=== PATIENT | male | born 1980 | race Two or more races ===

== ENCOUNTER 2022-03-28 17:15 | Emergency (ER) | payer OTHER, SELFPAY ==
[2022-03-28 17:16] VITALS: BP 112/76; PULSE 59; RESP 18; TEMP 36.8; O2SAT 99; BMI 27.4
--- NOTE | 2022-03-28 18:10 | CT_ITS ---
STUDY: CT ABDOMEN AND PELVIS WITH CONTRAST REASON FOR EXAM: Male, 41 years old. abd pain, GI bleed - RADIATION DOSAGE (If Supplied By Facility): CTDIvol = ( 15.12 ) mGy, DLP = ( 751.85 ) mGycm TECHNIQUE: Transaxial images were obtained from the dome of the diaphragm to the symphysis pubis with oral contrast. [address] 300 was administered. Sagittal and coronal images were reconstructed. Individualized dose optimization techniques were used for this CT. COMPARISON: None. FINDINGS: The visualized lung bases are unremarkable. The visualized portions of the heart are within normal limits. Normal liver. Normal gallbladder and extrahepatic biliary system. Normal spleen. Normal pancreas. Normal bilateral adrenal glands. Normal right kidney. Normal left kidney. Normal visualized stomach. No dilated loops of small bowel. Evaluation for active GI bleed interpreted by positive density luminal contrast. Normal colon. The appendix is visualized and appears normal. Normal abdominal aorta. Normal inferior vena cava. Normal retroperitoneum. Normal urinary bladder. Normal abdominal wall. Bilateral L5 spondylolysis with minimal grade [address]/Abdomen/Pelvis WITH Contrast IMPRESSION: 1. No acute inflammatory process or bowel obstruction. Electronically Signed: Jabier Knight MD (Brooks) at 20:25 EDT Reading Location ID and State: [facility] / [place] , Service support ,
--- NOTE | 2022-03-28 18:13 | EDS_ITS ---
HPI History of Present Illness Chief Complaint: Abd Pain Informant: patient Onset/Context/Timing Onset: Today Current Severity: Mild Maximum Severity: Moderate Narrative Narrative: Patient presents secondary to abdominal and back pain. He states he was awoken from sleep at 3 AM this morning with pain around the umbilicus. It seemed to go straight through to his back. He had dark stool this morning followed by diarrhea. He does report some blood in the toilet water and when he was wiping. He denies history of hemorrhoids. No rectal pain. PFSH PFSH Medical History no medical history no medical history Home Medications multivitamin 1 tab PO DAILY 03/28/22 [History Last Taken Unknown] omeprazole 40 mg capsule,delayed release 40 mg PO DAILY 4 weeks #28 caps 03/28/22 [Rx Last Taken Unknown] Allergy/AdvReac Type Severity Reaction Status Date / Time Penicillins [PCN] Allergy PT UNSURE Verified 03/28/22 17:46 OF REACTION Surgical History no surgical history no surgical history Social History Smoking Status: Never smoker ROS ROS ED Constitutional Constitutional ED: Denies chills or fever(s) Eyes Eyes: Denies change in vision or discharge from eye(s) ENT ENT ED: Denies discharge from eye(s), rhinorrhea or sore throat Cardiovascular Cardiovascular: Denies chest pain or palpitations Respiratory/Chest Respiratory/Chest: Denies cough or dyspnea Gastrointestinal Gastrointestinal: Reports abdominal pain and diarrhea; Denies nausea or vomiting Genitourinary Genitourinary ED: Denies difficulty urinating or dysuria Musculoskeletal Musculoskeletal: Reports back pain; Denies extremity pain Integumentary Denies Abrasions or rash Neurologic Neurologic: Denies headache(s) or weakness Allergic/Immunologic Allergic/Immunologic ED: Denies lip swelling or urticaria EXAM Physical Exam Const Vital Signs: 03/28/22 17:16 03/28/22 19:22 Temperature 98.2 F Temperature Source Temporal Pulse Rate 59 L Respiratory Rate 18 16 Blood Pressure 112/76 Blood Pressure Mean 88 Pulse Ox 99 Oxygen Delivery Method Room Air Positive well nourished and well developed General Appearance ED: well developed HEENT Reports moist mucous membranes Eyes PERRL and EOMs intact bilaterally Neck no lymphadenopathy Chest Wall inspection of chest normal and palpation of chest normal Resp normal respiratory effort and clear to auscultation bilaterally Cardio regular rate and regular rhythm GI normal to inspection, nondistended, normoactive bowel sounds and non-tender Back/Spine no CVA tenderness Extremity normal to inspection Neuro oriented x3, CN's II-XII intact bilaterally and no sensory deficits noted Motor Exam: strength 5/5 throughout Psych mental status grossly normal Skin no rashes or lesions noted MDM MDM MDM Narrative Medical decision making narrative: Patient declined anything for pain at this time. He is given IV fluids. Lab work obtained along with a CT scan of the abdomen pelvis. Lab Data Attestation: I reviewed the patient's lab results. Labs: Laboratory Results - last 24 hr 03/28/22 03/28/22 03/28/22 18:38 18:38 18:38 WBC 6.5 RBC 5.11 Hgb 15.4 Hct 47.2 MCV 92.4 MCH 30.1 MCHC 32.6 RDW Std Deviation 42.6 RDW Coeff of Julieta 12.4 Plt Count 196 MPV 10.6 Immature Gran % (Auto) 0.300 Neut % (Auto) 63.2 Lymph % (Auto) 25.8 Spink % (Auto) 8.6 Eos % (Auto) 1.5 Baso % (Auto) 0.6 Absolute Neuts (auto) 4.1 Absolute Lymphs (auto) 1.68 Nucleated RBC % 0 PT 13.1 INR 1.0 APTT 31.7 Sodium 141 Potassium 4.1 Chloride 107 Carbon Dioxide 29.0 Anion Gap 5 BUN 17 Creatinine 1.18 Estim Creat Clear Calc 75.85 Est GFR (MDRD) Af Amer 88 Est GFR (MDRD) Non-Af 73 BUN/Creatinine Ratio 14.4 Glucose 103 Calcium 9.3 Total Bilirubin 0.70 Direct Bilirubin 0.17 AST 13 L ALT 28 Alkaline Phosphatase 40 L Total Protein 7.4 Albumin 4.3 Globulin 3.1 Lipase 80 Radiography Diagnostic Testing: Clinical Impression(s) from Imaging Studies Abdomen/Pelvis CT 03/28/22 18:10 IMPRESSION: 1. No acute inflammatory process or bowel obstruction. Electronically Signed: Jabier Knight MD (Brooks) at 20:25 EDT Reading Location ID and State: [facility] / [place] , Service support , Treatment and Re-Evaluation Narrative: Patient's lab work is unremarkable with a normal white count and differential. Hemoglobin is 15.4. Coags are normal. Chemistry studies did not reveal a significant elevation in BUN. LFTs are unremarkable. CT scan with contrast reveals no acute findings. Test results are discussed with the patient. I advised him at this time I do not see an obvious source of his reported bleeding. In light of the fact that he had dark stools this morning and tenderness more in the periumbilical region I do have concern for possible ulcer. He will be treated with a course of Prilosec. He is referred to GI for follow-up as needed. Return instructions have been discussed. Discharge Plan Triage Chief Complaint: Abd Pain ED Provider: Mary Lou Ruvalcaba Dx/Rx/DC Orders Clinical Impression: GI bleed Instructions: Bleeding Gastrointestinal Prescriptions: New omeprazole 40 mg capsule,delayed release(DR/EC) 40 mg PO DAILY 28 Days Qty: 28 0RF No Action multivitamin Tablet 1 tab PO DAILY Primary Care Provider: Care Physician,No Primary Referrals: Winston Zambrano, DO [STAFF PHYSICIAN] - As Needed Care Physician,No Primary [Primary Care Provider] - Disposition Disposition: Home, Self Care
[2022-03-28 18:44] LABS: Absolute Lymphocyte Count 1.68 X10^3/uL (0.83-4.51); Absolute Neutrophil Count 4.1 X10^3/uL (2.0-7.7); Basophil# 0.04 X10^3/uL; Basophil% 0.6 % (0-1); Eosinophils% 1.5 % (0-5); Hematocrit 47.2 % (40-54); Hemoglobin 15.4 g/dL (13.0-16.5); Lymphocyte # 1.68 X10^3/ul (0.83-4.51); Lymphocyte % 25.8 % (19-41); Mean Corp Hgb Conc 32.6 g/dL (32-36); Mean Corpuscular Hgb 30.1 pg (27.0-32.0); Mean Corpuscular Volume 92.4 fL (80-94); Mean Platelet Vol. 10.6 fl (6.2-12.0); Monocyte# 0.56 X10^3/uL; Monocyte% 8.6 % (0-10); NRBC Flagged by Analyzer 0 % (0-5); Neutrophil % 63.2 % (47-70); Platelet Count 196 K/mm3 (150-450); RBC Distribution Width CV 12.4 % (11.6-14.6); RBC Distribution Width SD 42.6 fl (35.1-43.9); Red Blood Count 5.11 M/mm3 (4.6-6.2); White Blood Count 6.5 K/mm3 (4.4-11.0)
[2022-03-28 18:54] LABS: Prothrombin Time (Protime)PT. 13.1 SECONDS (11.7-14.9)
[2022-03-28 18:55] LABS: Partial Thromboplast Time 31.7 Seconds (24.1-36.2)
[2022-03-28 19:06] LABS: AST(SGOT) 13 U/L (15-37); Alanine Aminotransfer ALT/SGPT 28 U/L (16-61); Albumin, Serum 4.3 g/dL (3.2-5.0); Alkaline Phosphatase 40 U/L (45-117); Anion Gap 5 (5-15); BUN 17 mg/dL (7-18); BUN/Creat Ratio 14.4 RATIO (10-20); Bilirubin, Direct 0.17 mg/dL (0.00-0.30); Calcium,Total 9.3 mg/dL (8.5-10.1); Chloride 107 mmol/L (98-107); Creatinine, Serum 1.18 mg/dL (0.70-1.30); EST Glomerular Filtration Rate 73 mL/min (>60); Est Glom Filt Rate - Afr Amer 88 mL/min (>60); Estimated Creatinine Clearance 75.85 ml/min; Globulin 3.1 g/dL (2.2-4.2); Glucose 103 mg/dL (74-106); Lipase 80 U/L (73-393); Potassium 4.1 mmol/L (3.5-5.1); Protein, Total 7.4 g/dL (6.4-8.2); Sodium Level 141 mmol/L (136-145)
[2022-03-28] MEDS: 0.9% Normal Saline 1,000 ML 150 ML IV (19:10)
[2022-03-28 19:22] VITALS: RESP 16
--- NOTE | 2022-03-28 19:37 | CM.ED ---
Social Work Note Reason for Referral: No PCP SW reviewed chart, NO PCP listed for pt. SW in to speak with pt. Pt confirms he has no PCP and no insurance. Pt states that he paid the ER self deposit. SW provided pt with PCP List and self-pay/financial packet. Bonita Gabriel FLOOR TECH, BOX PRINTER
[2022-03-28] MEDS: Pantoprazole Sodium 40 MG Tablet PO (20:53)
== END 2022-03-28 20:58 | disposition home or self-care (01) ==
PROVIDERS: Emergency Provider Emergency Medicine; Visit Provider Emergency Medicine
DX: K92.2 Gastrointestinal hemorrhage, unspecified (principal)
CPT/HCPCS: 74177; 80048; 80076; 83690; 85025; 85610; 85730; 96360; 96361; 99284; J7030; Q9967; A4216

== ENCOUNTER → 2022-04-21 | Outpatient (CLI) | payer SELFPAY ==
[2022-04-21 13:08] LABS: Erythrocyte Sedimentation Rate 1 mm/hr (0-20)
[2022-04-21 13:24] LABS: Vitamin B12 729 pg/mL (211-911)
[2022-04-21 13:42] LABS: CRP < 2.90 mg/L (0.0-3.0); LDH 127 U/L (87-241); Thyroid Stim Hormone (TSH) 1.16 uIU/mL (0.358-3.74)
[2022-04-23 14:09] LABS: Anti-Centromere B Ab <0.2 AI (0.0-0.9); Anti-Chromatin <0.2 AI (0.0-0.9); Anti-Jo <0.2 AI (0.0-0.9); Anti-Scleroderma-70 AB <0.2 AI (0.0-0.9); RNP Ab 0.4 AI (0.0-0.9); SJOGREN'S Anti-SS-A test < 0.2 AI (0.0-0.9); SJOGREN'S Anti-SS-B test < 0.2 AI (0.0-0.9); Smith Ab <0.2 AI (0.0-0.9)
[2022-04-23 16:09] LABS: Endomysial Antibody IgA Negative (Negative)
[2022-04-24 07:54] LABS: Immunoglobulin A 90 mg/dL (90-386); t-Transglutaminase IgA <2 U/mL (0-3)
[2022-04-24 07:56] LABS: Anti-dsDNA Ab <1 IU/mL (0-9)
[2022-04-26 18:07] LABS: Albumin 4.3 g/dL (2.9-4.4); Alpha-1-Globulins 0.2 g/dL (0.0-0.4); Alpha-2-Globulins 0.6 g/dL (0.4-1.0); Cytoplasmic Ab (C-ANCA) <1:20 titer (Neg:<1:20); Immunoglobulin A 86 mg/dL (90-386); Immunoglobulin E 4 IU/mL (6-495); Immunoglobulin G 975 mg/dL (603-1613); Immunoglobulin M 64 mg/dL (20-172); PROEL- TOTAL PROTEIN 6.9 g/dL (6.0-8.5)
[2022-04-26 18:55] LABS: Perinuclear Ab (P-ANCA) <1:20 titer (Neg:<1:20)
== END | disposition home or self-care (01) ==
PROVIDERS: Referring Provider Internal Medicine Gastroenterology; Visit Provider Internal Medicine Gastroenterology
DX: K92.2 Gastrointestinal hemorrhage, unspecified (principal)
CPT/HCPCS: 36415; 82607; 82746; 82784; 82785; 83516; 83615; 84165; 84443; 85652; 86140; 86225; 86235; 86255; 86256; 86334

== ENCOUNTER → 2022-05-06 | Outpatient (CLI) | payer SELFPAY ==
[2022-05-13 14:28] LABS: Giardia Lamblia, Stool EIA Negative (Negative); Pancreatic Elastase, Fecal 96 (>200)
== END | disposition home or self-care (01) ==
LOC: LABSPEC 11:05
PROVIDERS: Visit Provider Internal Medicine Gastroenterology
DX: K92.2 Gastrointestinal hemorrhage, unspecified (principal); K58.9 Irritable bowel syndrome, unspecified
CPT/HCPCS: 82653; 83630; 87177; 87209; 87329; 87493

== ENCOUNTER 2022-05-07 11:18 | Day surgery (SDC) | payer SELFPAY ==
[2022-05-07 11:41] VITALS: BP 111/64; PULSE 49; RESP 14; TEMP 36.9; O2SAT 100; BMI 25.7
[2022-05-07] MEDS: Lactated Ringers 1,000 ML 15 ML IV (11:50)
--- NOTE | 2022-05-07 11:55 | HP.PCM_ITS ---
History and Physical Date of Admission: 05/07/22 42 M who presents to the office today for Initial consult. Vincent established with this clinic 04.21.22 following [facility] ED presentation 03.28.22 for periumbilical abdominal pain radiating to his back and diarrhea with blood. Biochemical workup and imaging performed without acute findings. Upper GI ulcer suspected and he was discharged with Prilosec.? ? Biochemical workup CBC, CMP, coagulation without pertinent abnormality. LFT AST L13/ALT WNL28/AlkPhos L40.? ? CT abd/pel 03.28.22 for abdominal pain, GIB without acute or chronic abnormalities found.? ? Patient states that since his ER visit he states that he has not had any blood in his stool. He states that his stool has been green in color and the consistency changes. Patient states that the prilosec has not helped. He states that he has changed his diet to avoid acidic foods and this has decreased his symptoms but he still has occasional gas, bloating, abdominal pain, and heartburn. Patient states that he had an episode of the same symptoms a few years ago and this was eliminated with dietary changes. States that he had biochemical workup and a stool test with his last episode years ago but these results were all unremarkable. Denies ever having a EGD or Colonoscopy. Patient states that his mom has Gastritis and he has an aunt that had stomach cancer. ? ROS Const Constitutional: No fatigue, fever(s), frequent falls, headache(s) or weight change ENT ENT: No headache(s) or difficulty swallowing Cardio Cardiology: No leg pain with exertion Gastro GI: Positive for bloating, change in bowel habits, constipation, diarrhea and heartburn; No abdominal pain, difficulty swallowing, Vomiting blood/hematemesis, Blood in stool, nausea/dyspepsia or vomiting Musc Musculoskeletal: Positive for back pain; No abnormal gait, joint pain, joint swelling, muscle cramps, muscle weakness, numbness, stiffness, tingling, Arthritis, sciatica, leg pain at night or leg pain with exertion Skin Skin: No dry skin, lesions, itchy eyes or rash Neuro Neurology: No abnormal gait, dizziness, frequent falls, headache(s), numbness, tingling, tremor(s), Increased tone in limbs, paralysis or seizures Psych Psychiatric: No anxiety, No depression, No paranoia, No Behavioral Problems, No Compulsive Behavior, No hyperactivity, No inattentiveness, No obsessions/compulsions, Positive for Temper Tantrums and No suicidal ideation Endo Endocrine: No fatigue or weight change Aller/Imm Allergy/Immunologic: No itchy eyes Messi/Lymp Hematologic/Lymphatic: No easy bleeding or easy bruising Exam Const General: cooperative and comfortable Nutritional Appearance: average body habitus and well nourished [facility] Head: normal to inspection Ears: hearing grossly normal bilaterally Nose: external nose normal Face and sinus: normal facial exam Mouth: oral mucosae normal Throat: posterior oropharynx normal Eyes General: appearance normal, both eyes and all related structures Neck Neck: normal visual inspection Chest Chest palpation & inspection: normal inspection of the chest and normal palpation of entire chest wall Resp Effort & Inspection: normal respiratory effort Auscultation: Bilateral: Clear to Auscultation Cardio Palpation: normal PMI Rate: regular rate Rhythm: regular rhythm GI Inspection: normal to inspection Auscultation: normal bowel sounds Percussion: normal to percussion Palpation: no hepatosplenomegaly Skin General: no rashes or lesions noted Neuro General: patient alert Extrem General: normal to inspection Psych Affect: normal affect Quality Reporting Tobacco Screening ([facility]) Smoking Status: Never smoker Assessment and Plan Assessment and Plan (1) GI bleed: ?Status:?Acute ?Plan: The differential diagnosis for GI bleed in the setting of weight loss does include peptic ulcer disease, less likely malignancy, H. pylori associated gastritis, less likely inflammatory bowel disease, also less likely angiodysplasia.? He wanted chemical testing and also undergo stool testing.? We will evaluate his upper GI tract for any intraluminal abnormality that can be hopefully diagnosed and therapeutically treated at the same time.? He may also need a capsule endoscopy and/or colonoscopy depending with upper endoscopy shows along with a biochemical work-up and stool testing. ? ? ? Orders: Orders CRP Today K92.2 - Gastrointestinal hemorrhage, unspecified ? Erythrocyte Sed Rate Today K92.2 - Gastrointestinal hemorrhage, unspecified ? ANCA Today K92.2 - Gastrointestinal hemorrhage, unspecified ? Celiac Disease Profile Today K92.2 - Gastrointestinal hemorrhage, unspecified ? Vitamin B12 Today K92.2 - Gastrointestinal hemorrhage, unspecified ? Folates, (Folic Acid) Today K92.2 - Gastrointestinal hemorrhage, unspecified ? LDH Today K92.2 - Gastrointestinal hemorrhage, unspecified ? Thyroid Stim Hormone (TSH) Today K92.2 - Gastrointestinal hemorrhage, unspecified ? BURAK Comprehensive Panel Today K92.2 - Gastrointestinal hemorrhage, unspecified ? Ova and Parasites 8623 Today K58.9 - Irritable bowel syndrome without diarrhea, K92.2 - Gastrointestinal hemorrhage, unspecified ? CDIFF (PCR) Today K92.2 - Gastrointestinal hemorrhage, unspecified, R19.7 - Diarrhea, unspecified ? Stool Lactoferrin/WBC Today K58.9 - Irritable bowel syndrome without diarrhea, K92.2 - Gastrointestinal hemorrhage, unspecified ? Immunoglobulins G/A/M/E Today K92.2 - Gastrointestinal hemorrhage, unspecified ? Giardia Lamblia, Stool EIA Today K92.2 - Gastrointestinal hemorrhage, unspecified ? CHASIDY + Protein Elect, Serum Today K92.2 - Gastrointestinal hemorrhage, unspecified ? Pancreatic Elastase, Fecal Today K92.2 - Gastrointestinal hemorrhage, unspecified ? I have re-examined the patient. There are no clinical changes since date of exam.
--- NOTE | 2022-05-07 12:15 | EGD_PTH ---
PATIENT: SHONNA CID LOC: EN U#:[id number] AGE/SX: 42/M ROOM: RE05/07/[address]: Dr. Winston Zambrano DO : 1980 BED: DIS: 05/07/2022 SPEC #: [id number] RECD: 05/07/22 12:37 STATUS: JEOVANNY REQ #: [id number] ALEXANDRA: 05/07/22 12:[address]: Winston Zambrano DEPT: SURGICAL PATHOLOGY RECD BY: Danni Anna ENTERED: 05/07/22 13:40 SP TYPE: EGD BIOPSY OT DR: Ashely Primary Care Phys Tissues: A - Duodenum, NOS B - Gastric mucous membrane C - Esophagus, NOS Procedures: Special Stain Group II Surgery Specimen Level IV Alcian Blue/PAS (control) HEADER OPERATION: [place] with biopsies PRE-OP DIAGNOSIS: GI bleed TISSUE SUBMITTED: A ? Duodenum biopsy, B ? Gastric body biopsy, C ? Distal esophagus biopsy MICROSCOPIC DIAGNOSIS A. Duodenum, biopsy: A fragment of small intestinal mucosa with mild congestion and hemorrhage. B. Gastric body, biopsy: Minimal gastritis. See microscopic description and comment. C. Distal esophagus, biopsy: Fragments of gastroesophageal mucosa with chronic inflammation. Intestinal metaplasia (goblet cell metaplasia) not identified. See comment. SJ:rickie 05/08/2022 COMMENT B. The results of immunohistochemistry for Helicobacter pylori will be reported separately ([id number]). C. Alcian blue/PAS stain with matched control is used in the evaluation of the specimen. MICROSCOPIC DESCRIPTION Slides are reviewed. B. The specimen shows fragments of gastric mucosa with chronic inflammatory cell infiltrates in the lamina propria consisting of lymphocytes and plasma cells, consistent with minimal chronic gastritis. GROSS DESCRIPTION A - Received in fixative is one container labeled with the patient's name and designated duodenum biopsy. The specimen consists of one irregular fragment of light chapa soft tissue that measures 0.3 x 0.2 x 0.1 cm. The specimen is totally submitted in one cassette. B - Received in fixative is one container labeled with the patient's name and designated gastric body biopsy. The specimen consists of two irregular fragments of light chapa soft tissue that in aggregate measure 0.6 x 0.3 x 0.1 cm. The specimen is totally submitted in one cassette. C - Received in fixative is one container labeled with the patient's name and designated distal esophagus. The specimen consists of multiple irregular fragments of light chapa soft tissue that in aggregate measure 0.8 x 0.5 x 0.1 cm. The specimen is totally submitted in one cassette. / GEOVANNA:rickie 05/07/2022 TC:3 CPT: 29906 x3, 46908
--- NOTE | 2022-05-07 12:15 | IMM_PTH ---
PATIENT: SHONNA CID LOC: EN U#:[id number] AGE/SX: 42/M ROOM: RE05/07/[address]: Dr. Winston Zambrano DO : 1980 BED: DIS: 05/07/2022 SPEC #: [id number] RECD: 05/07/22 13:54 STATUS: JEOVANNY REQ #: [id number] ALEXANDRA: 05/07/22 12:[address]: Winston Zambrano DEPT: IMMUNOHISTOCHEMISTRY RECD BY: Rossana Bach ENTERED: 05/07/22 13:55 SP TYPE: IMMUNO OTHR DR: Ashely Primary Care Phys Tissues: B - Stomach, NOS Procedures: H Pylori (initial) PHYSICIAN & INSTITUTION [place] [id number] SPECIMEN INFORMATION: Tissue Source: B ? Gastric body biopsy Clinical Info: GI bleed Specimen Number: [id number] CPT code: 06894 METHODOLOGY: Deparaffinized sections of prefer/formalin-fixed tissue or PAP/DQ stained slides are incubated with monoclonal/polyclonal antibodies/oligonucleotide probes. Localization is made via biotin free immunoperoxidase method. Appropriate controls are performed and reacted as expected. Results on target cell population are indicated in the following table: RESULTS: ANTIBODY / CLONE RESULT Block B H Pylori (polyclonal) negative These tests were developed and their performance characteristics determined by [facility]. They may not have been cleared or approved by the U.S. Food and Drug Administration. The FDA has determined that such clearance or approval is not necessary. The above immunohistochemical/dualISH markers are ordered and reviewed by the Pathologist. INTERPRETATION: B. Gastric body, biopsy: Negative for Helicobacter pylori organisms. SJ:rickie 05/08/2022
[2022-05-07 12:25] VITALS: BP 101/79; BP 111/64; PULSE 52; RESP 16; TEMP 36.7; O2SAT 97
--- NOTE | 2022-05-07 12:25 | OP.EGD_ITS ---
Patient Name: Vincent Castro Procedure Date: 05/07/2022 11:58 AM Date of : 1980 Age: 42 Procedure: Upper GI endoscopy Indications: Epigastric abdominal pain, Dyspepsia, Heartburn Providers: Winston Zambrano DO Medicines: Monitored Anesthesia Care Patient Profile: This is a 42 year old male. Refer to note in patient chart for documentation of history and physical. Patient has symptoms of acute abdominal cramping and chronic epigastric abdominal pain. Complications: No immediate complications. Procedure: Pre-Anesthesia Assessment: - Prior to the procedure, a History and Physical was performed, and patient medications and allergies were reviewed. The patient is competent. The risks and benefits of the procedure and the sedation options and risks were discussed with the patient. All questions were answered and informed consent was obtained. Patient identification and proposed procedure were verified by the physician in the pre-procedure area. Mental Status Examination: alert and oriented. Airway Examination: normal oropharyngeal airway and neck mobility. Respiratory Examination: clear to auscultation. CV Examination: normal. Prophylactic Antibiotics: The patient does not require prophylactic antibiotics. Prior Anticoagulants: The patient has taken no previous anticoagulant or antiplatelet agents. ASA Grade Assessment: II - A patient with mild systemic disease. After reviewing the risks and benefits, the patient was deemed in satisfactory condition to undergo the procedure. The anesthesia plan was to use moderate sedation / analgesia (conscious sedation). Immediately prior to administration of medications, the patient was re-assessed for adequacy to receive sedatives. The heart rate, respiratory rate, oxygen saturations, blood pressure, adequacy of pulmonary ventilation, and response to care were monitored throughout the procedure. The physical status of the patient was re-assessed after the procedure. After obtaining informed consent, the endoscope was passed under direct vision. Throughout the procedure, the patient's blood pressure, pulse, and oxygen saturations were monitored continuously. The gastroscope was introduced through the mouth, and advanced to the second part of duodenum. The upper GI endoscopy was accomplished without difficulty. The patient tolerated the procedure well. Scope In: 12:14:59 PM Scope Out: 12:18:53 PM Total Procedure Duration Time 0 hours 3 minutes 54 seconds Findings: The Z-line was irregular and was found 39 cm from the incisors. Biopsies were taken with a cold forceps for histology. Verification of patient identification for the specimen was done. Estimated blood loss was minimal. A medium-sized hiatal hernia was present. Scattered mild inflammation characterized by congestion (edema) and erosions was found in the stomach. Biopsies were taken with a cold forceps for histology. Verification of patient identification for the specimen was done. Estimated blood loss was minimal. The second portion of the duodenum was normal. Biopsies were taken with a cold forceps for histology. Impression: - Z-line irregular, 39 cm from the incisors. Biopsied. - Medium-sized hiatal hernia. - Gastritis. Biopsied. - Normal second portion of the duodenum. Biopsied. Recommendation: - Await pathology results. - Repeat upper endoscopy in 1 year for surveillance. - Return to GI clinic. - Continue present medications. Procedure Code(s): --- Professional --- 36317, Esophagogastroduodenoscopy, flexible, transoral; with biopsy, single or multiple CPT copyright 2017 [employer]. All rights reserved. The codes documented in this report are preliminary and upon sole dyer review may be revised to meet current compliance requirements. Winston Zambrano DO 05/07/2022 12:24:57 PM This report has been signed electronically. Number of Addenda: 1 Note Initiated On: 05/07/2022 11:58 AM Addendum Number: 1 Addendum Date: 07/09/2022 6:27:05 AM MAC was used as sedation for this procedure. Winston Zambrano DO 07/09/2022 6:27:09 AM This report has been signed electronically.
--- NOTE | 2022-05-07 12:25 | OP.CCLET_ITS ---
07/09/2022 No Primary Care Physician Re : Upper GI endoscopy procedure for Vincent Castro Dear Care Physician This procedure was performed on May. My impressions and recommendations are as follows: Impressions : - Z-line irregular, 39 cm from the incisors. Biopsied. - Medium-sized hiatal hernia. - Gastritis. Biopsied. - Normal second portion of the duodenum. Biopsied. Recommendations : - Await pathology results. - Repeat upper endoscopy in 1 year for surveillance. - Return to GI clinic. - Continue present medications. My findings are described in the full procedure note, which is enclosed. If I can be of further assistance, please feel free to contact me at . Sincerely, Winston Zambrano, 05/07/2022 12:24:57 PM This report has been signed electronically.
[2022-05-07 12:30] VITALS: BP 111/64; BP 91/50; PULSE 52; RESP 14; O2SAT 96
[2022-05-07 12:35] VITALS: BP 111/64; BP 93/52; PULSE 49; RESP 14; O2SAT 96
[2022-05-07 12:50] VITALS: BP 111/64; BP 95/59; PULSE 50; RESP 16; TEMP 36.8; O2SAT 98
[2022-05-07 13:14] VITALS: BP 111/64
== END 2022-05-07 13:24 | disposition home or self-care (01) ==
LOC: EN 11:21 → AC 11:22
PROVIDERS: Visit Provider Internal Medicine Gastroenterology
PROC: 0DJ08ZZ Inspection of Upper Intestinal Tract, Via Natural or Artificial Opening Endoscopic (ICD-10-PCS; CPT 43235; principal; 2022-05-07 12:10)
DX: K20.90 Esophagitis, unspecified without bleeding (principal); K44.9 Diaphragmatic hernia without obstruction or gangrene; K29.50 Unspecified chronic gastritis without bleeding
CPT/HCPCS: 43239; 88305; 88313; 88342; J7120; J2405

== ENCOUNTER → 2022-05-18 | Outpatient (CLI) | payer SELFPAY | END | disposition home or self-care (01) | PROVIDERS: Visit Provider Internal Medicine Gastroenterology | DX: R10.9 Unspecified abdominal pain (principal) | CPT/HCPCS: 36415 ==

== ENCOUNTER → 2022-05-27 | Outpatient (CLI) | payer SELFPAY ==
[2022-05-27 14:37] LABS: CPK Total, Creatine Kinase 88 U/L (39-308)
== END | disposition home or self-care (01) ==
PROVIDERS: Referring Provider Internal Medicine Gastroenterology; Visit Provider Internal Medicine Gastroenterology
DX: R63.4 Abnormal weight loss (principal); K50.00 Crohn's disease of small intestine without complications
CPT/HCPCS: 36415; 82550; 83630; 83993

== ENCOUNTER → 2022-06-01 | Outpatient (CLI) | payer SELFPAY ==
[2022-06-01 15:38] LABS: Absolute Neutrophil Count 0.7 X10^3/uL (2.0-7.7); Basophil# 0.02 X10^3/uL; Basophil% 0.7 % (0-1); Eosinophil# 0.05 X10^3/uL; Eosinophils% 1.8 % (0-5); Hematocrit 46.8 % (40-54); Hemoglobin 15.3 g/dL (13.0-16.5); Lymphocyte % 64.5 % (19-41); Mean Corp Hgb Conc 32.7 g/dL (32-36); Mean Corpuscular Hgb 30.1 pg (27.0-32.0); Mean Corpuscular Volume 92.1 fL (80-94); Mean Platelet Vol. 11.6 fl (6.2-12.0); Monocyte# 0.25 X10^3/uL; NRBC Flagged by Analyzer 0 % (0-5); Neutrophil # 0.66 X10^3/uL (2.7-7.7); Neutrophil % 23.6 % (47-70); POSITIVE DIFFERENTIAL YES; POSITIVE MORPHOLOGY YES; Platelet Count 150 K/mm3 (150-450); RBC Distribution Width CV 12.5 % (11.6-14.6); RBC Distribution Width SD 42.6 fl (35.1-43.9); Red Blood Count 5.08 M/mm3 (4.6-6.2); White Blood Count 2.8 K/mm3 (4.4-11.0)
[2022-06-01 16:16] LABS: Differential Indicated SCAN CRITERIA MET
[2022-06-01 16:18] LABS: ALB/GLOB Ratio 1.2 RATIO (0.9-2.4); AST(SGOT) 29 U/L (15-37); Alanine Aminotransfer ALT/SGPT 32 U/L (16-61); Alkaline Phosphatase 46 U/L (45-117); Anion Gap 5 (5-15); BUN 12 mg/dL (7-18); BUN/Creat Ratio 10.8 RATIO (10-20); Calcium,Total 8.7 mg/dL (8.5-10.1); Chloride 103 mmol/L (98-107); Creatinine, Serum 1.11 mg/dL (0.70-1.30); EST Glomerular Filtration Rate 78 mL/min (>60); Est Glom Filt Rate - Afr Amer 94 mL/min (>60); Globulin 3.4 g/dL (2.2-4.2); Glucose 130 mg/dL (74-106); Potassium 4.3 mmol/L (3.5-5.1); Protein, Total 7.4 g/dL (6.4-8.2); Sodium Level 138 mmol/L (136-145)
[2022-06-01 16:19] LABS: Atypical Lymphocyte 2+ %; Platelet Estimate ADEQUATE (ADEQ); Red Cell Morphology N CHROM NORMAL (NORM C&C)
[2022-06-01 16:20] LABS: Anisocytosis RARE; Macrocytosis RARE
== END | disposition home or self-care (01) ==
LOC: LAB 13:23
PROVIDERS: Visit Provider Internal Medicine Gastroenterology
DX: K50.00 Crohn's disease of small intestine without complications (principal)
CPT/HCPCS: 36415; 80053; 85025